=== PATIENT | female | born 1960 ===

== ENCOUNTER 2018-11-04 12:33 | Emergency (ER) | payer SELFPAY ==
[~2018-11-04] VITALS: Ht 165.1 cm; Wt 68.0 kg
== END 2018-11-04 13:15 | disposition left against medical advice (07) ==
LOC: ED 12:33
DX: R10.9 Unspecified abdominal pain (principal); Z53.21 Procedure and treatment not carried out due to patient leaving prior to being seen by health care provider

== ENCOUNTER 2020-01-29 16:57 | Emergency (ER) | payer SELFPAY ==
[~2020-01-29] VITALS: Ht 165.1 cm; Wt 68.0 kg
--- NOTE | 2020-01-30 08:15 | NUR ---
PT EATS BREAKFAST IN BED AND WATCHES TV. NO NEEDS VOICED
--- NOTE | 2020-01-30 08:20 | NUR ---
PT WITH REQUEST FOR COFFEE, CALL PLACED TO KITCHEN AND REQUEST MADE
== END 2020-01-30 10:33 ==
LOC: ED 16:57
DX: S80.252A Superficial foreign body, left knee, initial encounter (principal); S70.352A Superficial foreign body, left thigh, initial encounter; S80.211A Abrasion, right knee, initial encounter; F29 Unspecified psychosis not due to a substance or known physiological condition; E05.90 Thyrotoxicosis, unspecified without thyrotoxic crisis or storm; X58.XXXA Exposure to other specified factors, initial encounter
CPT/HCPCS: 76536; 80053; 80176; 81001; 84436; 84443; 84479; 84480; 85025; 99285-25; C9803; G0480